=== PATIENT | male | born 1995 | race Caucasian/White ===

== ENCOUNTER 2021-06-09 11:24 | Outpatient (REF) | payer BC, SELFPAY ==
[2021-06-09 12:18] LABS: Abs Immature Grans 0.02 10^3/uL (0.0-0.06); Absolute Basophil Count 0.09 10^3/uL (0.0-0.2); Absolute Eosinophil Count 0.24 10^3/uL (0.0-0.7); Absolute Lymphocyte Count 3.25 10^3/uL (1.2-3.4); Absolute Monocyte Count 0.64 10^3/uL (0.1-0.8); Absolute Neutrophil Count 3.96 10^3/uL (1.2-6.7); Basophils % 1.1; Eosinophils % 2.9; HCT 46.9 % (40.0-50.0); HGB 15.5 g/dL (13.5-17.5); Immature Grans % 0.2; Lymphocytes % 39.6; MCH 29.4 pg (27.0-33.0); MCV 89 fL (80-95); Monocytes % 7.8; Neutrophils % 48.4; Platelet Count 396 10^3/uL (130-400); RBC 5.27 10^6/uL (4.36-5.78); RDW 12.6 % (11.8-14.1); RDW-SD 41.7 fL
[2021-06-10 13:45] LABS: COVID-19 RT-PCR UVMMC Result Negative (Negative)
== END 2021-06-09 11:25 | disposition home or self-care (01) ==
LOC: LBN 11:24
PROVIDERS: Visit Provider Physician Assistant
DX: R53.83 Other fatigue (principal); Z20.822 Contact with and (suspected) exposure to COVID-19
CPT/HCPCS: U0003; 85025